=== PATIENT | female | born 1960 | race Caucasian/White ===

== ENCOUNTER → 2016-06-12 | Outpatient (CLI) | payer BC ==
[2016-06-12 08:46] LABS: Basophils # (A) 0.1 k/uL (0-0.2); Basophils % (A) 1 %; CH 29.9; CHCM 33.1; Eosinophils # (A) 0.2 k/uL (0-0.7); Eosinophils % (A) 3 %; HCT 44.2 % (34.0-46.0); HDW 2.33; Luc # (Auto) 0.08; Luc % (Auto) 2; Lymphocytes # (A) 1.8 k/uL (1.0-4.8); Lymphocytes % (A) 38 %; MCH 30.8 pg (25.0-35.0); MCHC 33.8 g/dL (31.0-37.0); Mean Platelet Volume 7.6; Monocytes # (A) 0.2 k/uL (0-1.0); Monocytes % (A) 5 %; Neutrophils # (A) 2.5 k/uL (1.3-7.7); Neutrophils % (A) 52 %; RBC 4.86 m/uL (3.80-5.40); RDW 12.5 % (11.5-15.5); WBC 4.8 k/uL (3.8-10.6); WBC (Perox) 4.69
[2016-06-12 09:11] LABS: ALT 25 U/L (9-52); AST 21 U/L (14-36); Alkaline Phosphatase 88 U/L (38-126); Anion Gap 10 mmol/L; Blood Urea Nitrogen 17 mg/dL (7-17); Calcium 9.8 mg/dL (8.4-10.2); Carbon Dioxide 27 mmol/L (22-30); Chloride 107 mmol/L (98-107); Cholesterol 238 mg/dL (<200); Glucose 94 mg/dL (74-99); HDL Cholesterol 62 mg/dL (40-60); Non-African American GFR(MDRD) >60 (>60 ml/min/1.73 sqM); Potassium 4.7 mmol/L (3.5-5.1); Sodium 144 mmol/L (137-145); Total Bilirubin 0.6 mg/dL (0.2-1.3); Total Protein 7.6 g/dL (6.3-8.2); Triglycerides 167 mg/dL (<150)
[2016-06-12 10:05] LABS: Hepatitis C Virus IgG Ab Negative (Negative)
== END ==
LOC: LABWHC1 08:27
PROVIDERS: ATTEND Family Medicine
DX: E78.5 Hyperlipidemia, unspecified (principal); Z20.9 Contact with and (suspected) exposure to unspecified communicable disease
CPT/HCPCS: 36415; 80053; 80061; 84439; 84443; 85025; 86803

== ENCOUNTER → 2017-05-09 | Outpatient (CLI) | payer BC ==
[2017-05-09 10:00] LABS: Cholesterol 230 mg/dL (<200); HDL Cholesterol 63 mg/dL (40-60); LDL Cholesterol,Calculated 152 mg/dL (0-99); Triglycerides 75 mg/dL (<150)
== END | disposition home or self-care (01) ==
LOC: LABWHC1 08:09
PROVIDERS: ATTEND Physician Assistant
DX: E78.5 Hyperlipidemia, unspecified (principal)
CPT/HCPCS: 36415; 80061

== ENCOUNTER → 2020-10-07 | Outpatient (CLI) | payer BC ==
--- NOTE | 2020-10-07 09:34 | XR ---
EXAMINATION TYPE: XR knee complete LT DATE OF EXAM: 10/07/2020 COMPARISON: NONE HISTORY: knee pain. TECHNIQUE: Three views are submitted. FINDINGS: Area of the medial compartment of the knee joint with hypertrophic spur. Patellofemoral joint hypertr ophic change and mild narrowing.. Osseous structures are intact. No acute fracture seen. IMPRESSION: 1. Mild osteoarthritic changes.
== END | disposition home or self-care (01) ==
LOC: RADXRMAIN 08:19
PROVIDERS: ATTEND Family Medicine
DX: M17.12 Unilateral primary osteoarthritis, left knee (principal)

== ENCOUNTER 2022-02-14 07:30 | Day surgery (SDC) | payer BC ==
[2022-02-12 13:42] VITALS: BMI 31.8
[~2022-02-14 07:30] MED LIST: LACTATED RINGERS 1,000 ML IV SCH; LIDOCAINE 1% (10MG/ML) FOR IV START INTRADERMA PRN
[2022-02-14 08:06] VITALS: RESP 16; TEMP 97.6
[2022-02-14] MEDS ORDERED: LIDOCAINE 2% INJ 20 MG/ML (2 ML VIAL) ONE (09:00)
[2022-02-14] MEDS ORDERED: PROPOFOL 10 MG/ML 20 ML VIAL IV ONE (09:00)
--- NOTE | 2022-02-14 09:31 | P.PCN ---
Date of Procedure: 02/14/22 Procedure(s) Performed: Brief history: Patient is a pleasant 61-year-old white female scheduled for an elective upper endoscopy as well as colonoscopy as a part of evaluation of GERD and screening for colon cancer Procedure performed: Esophagogastroduodenoscopy with biopsy Colonoscopy Preoperative diagnosis: GERD/screening for colon cancer Anesthesia: MAC Procedure: After informed consent was obtained from the patient was brought into the endoscopy unit and IV sedation was administered by anesthesia under continuous monitoring. Initially upper endoscopy was done. The Olympus GF 160 video endoscope was inserted inserted into the mouth and esophagus intubated without any difficulty and was gradually advanced into the stomach and duodenum and carefully examined. The bulb and second part of the duodenum appeared normal. The scope was then withdrawn into the stomach adequately insufflated with air and upon careful examination the antrum and mild gastritis and biopsies were done from this area. The body, cardia and fundus appeared normal. The scope was then withdrawn into the esophagus. The GE junction was located at 44 cm to the incisors. small to moderate size hiatal hernia noted. It appeared regular with no erythema erosions or ulcerations. Rest of the esophagus appeared n ormal. Patient tolerated the procedure well. At this time the patient continued to remain sedation. Initial digital rectal examination was normal. Olympus CF 160 video colonoscope was then inserted into the rectum and gradually advanced to the cecum without any difficulty. Careful examination was performed as the scope was gradually being withdrawn. The prep was excellent. The cecum, ascending colon, transverse colon, descending colon, sigmoid colon and rectum appeared normal. Retroflexion was performed in the rectum and no lesions were noted. Patient tolerated the procedure well. Impression: 1. Upper Endoscopy revealed small hiatal hernia and mild antral gastritis 2. Colonoscopy was within normal limits with no evidence of colorectal neoplasia Recommendations: Findings of this examination were discussed with the patient as well as her family. She was advised to follow with the biopsy results. She was advised to have a repeat screening colonoscopy in 10 years.
[2022-02-14 09:56] VITALS: BP 126/75; PULSE 66
== END 2022-02-14 10:09 | disposition home or self-care (01) ==
LOC: ORWHC2ENDO 07:30
PROVIDERS: ATTEND Internal Medicine Gastroenterology
DX: Z12.11 Encounter for screening for malignant neoplasm of colon (principal); K29.50 Unspecified chronic gastritis without bleeding; K31.A0 Gastric intestinal metaplasia, unspecified; K44.9 Diaphragmatic hernia without obstruction or gangrene; K21.9 Gastro-esophageal reflux disease without esophagitis
CPT/HCPCS: 45378; 88305; 43239; J2704; J2001; G0121

== ENCOUNTER → 2022-03-21 | Outpatient (CLI) | payer BC ==
--- NOTE | 2022-03-21 16:29 | CTL ---
EXAMINATION TYPE: CT Low Dose Lung DATE OF EXAM ORDERED: 03/21/2022 HISTORY: Long-term tobacco use. Lung cancer screening CT DLP: [address] CTDI: 2.3 mGy Automated exposure control for dose reduction was used. SCREENING VISIT: Baseline COMPARISON: None TECHNIQUE: Low dose computed tomography scan was performed through the chest at 1 mm thick sections a nd reconstructed images in multiple planes at 1 mm and [address] DIAGNOSTIC QUALITY: Satisfactory FINDINGS: LUNG NODULES: None. LUNGS: COPD: Severity: None Fibrosis: Severity: Mild bilateral lower lung linear scarring Lymph nodes: No greater than 1 cm noncalcified Other findings: None RIGHT PLEURAL SPACE: Effusion: None Calcification: None Thickening: None Pneumothorax: None LEFT PLEURAL SPACE: Effusion: None Calcification: None Thickening: None Pneumothorax: None HEART: Heart Size: Normal Coronary Calcification: None Pericardial Effusion: None OTHER FINDINGS: Upper abdomen: None Bony thorax: Slight scoliotic curvature. Mild multilevel anterior spurring. Supraclavicular region: None Other: None IMPRESSION: No significant pulmonary nodules. CT LUNG RAD AND CT CHEST RECOMMENDATION: Lung-Rad 1 Negative: Continue annual screening with LDCT in 12 months. S Modifier (other clinically significant findings): None
--- NOTE | 2022-03-21 18:07 | BD ---
EXAMINATION TYPE: Axial Bone Density DATE OF EXAM: 03/21/2022 COMPARISON: BASELINE CLINICAL HISTORY: 61 years old Female. ICD-10 CODE: Z78.0 ASYMPTOMATIC MENOPAUSE Height: 62.5 Weight: 184 FRAX RISK QUESTIONS: Family History (Parent hip fracture): NO History of Fracture in Adulthood: YES RT FOOT 2017 Secondary Osteoporosis: NO Rheumatoid Arthritis: NO Current Tobacco Use: YES RISK FACTORS HISTORY OF: Family History of Osteoporosis: YES MOTHER Active: YES Diet low in dairy products/other sources of calcium: NO Postmenopausal woman: YES Lost more than 2 inches in height since high school: NO Frequent falls: NO Poor Health: NO MEDICATIONS: Additional Medications: YES NORCO , CELEBREX , VIT D , CALCIUM EXAM MEASUREMENTS: Bone mineral densitometry was performed using the [employer] System. Bone mineral density as measured about the Lumbar spine is: ----- L1-L4(G/cm2): 0.931 T Score Values are as follows: ----- L1: -1.9 ----- L2: -2.0 ----- L3: -2.4 ----- L4: -2.1 ----- L1-L4: -2.1 Bone mineral density BASELINE Bone mineral density about the R hip (g/cm2): 0.886 Bone mineral density about the L hip (g/cm2): 0.873 T Score values are as follows: -----R Neck: -1.7 -----L Neck: -1.8 -----R Total: -1.0 -----L Total: -1.1 Bone mineral density has BASELINE FRAX%s: The graph provided illustrates a 15.2% chance for a major osteoporotic fx and a 2.9% chance f or the hips probability for fx in 10 years time. IMPRESSION: Osteopenia (T Score between -2.5 and -1). There is slightly increased risk of fracture and the patient may be considered for treatment. Re-Screen 2-5 years. NOTE: T-SCORE=SD OF THE YOUNG ADULT MEAN.
== END | disposition home or self-care (01) ==
LOC: RADCTMAIN 15:07
PROVIDERS: ATTEND Family Medicine
DX: Z12.2 Encounter for screening for malignant neoplasm of respiratory organs (principal); M85.89 Other specified disorders of bone density and structure, multiple sites; Z87.891 Personal history of nicotine dependence; Z78.0 Asymptomatic menopausal state; Z79.1 Long term (current) use of non-steroidal anti-inflammatories (NSAID)
CPT/HCPCS: 71271; 77080

== ENCOUNTER → 2022-07-11 | Outpatient (CLI) | payer BC ==
--- NOTE | 2022-07-11 11:05 | CA ---
Stress Echo Report Pura Pulido Age: 62 Gender: F : 1960 Exam Date: 07/11/2022 09:51 Exam Location: [place] [facility] Ht (in): 63 Wt (lb): 177 Ordering Physician: Ranjit Villalobos MD Referring Physician: Wilfredo PENALOZA Stove Installer: REUBEN Technologist Procedure CPT: Indication: Z87.891 PERSONAL HISTORY OF NICOTINE DEPENDENCE ICD-9 Codes: Rhythm: Patient History: Abnormal EKG Cardiac Medications: Medications in past 24 hours: Contrast: Stress Results Protocol: Raul Total dose(mL): Exercise Duration (min:sec): 10:[address] Depression (mm): Angina Score: Lazo Score: METS: 11.5 Resting HR: 60 Resting BP: 96 / 71 Peak HR: 142 Peak BP: 176 / 67 Max Predicted HR: 159 89 % Max Predicted HR Target HR: 135 Double Product: [id number] Stress Summary: BP Response: Reason for Termination: Reached target heart rate or work-load Cardiac Symptoms: No Symptoms ECG Analysis Resting ECG: Stress ECG: Arrhythmia: Echo Analysis Resting Echo: Peak Echo Analysis: MEASUREMENTS (Male/Female) Normal Values CONCLUSIONS Baseline EKG revealed normal sinus rhythm with nondiagnostic inferior Q waves. Patient walked for 10 minutes 17 seconds and achieved a maximum heart rate of 142 bpm is more than 85% of predicted maximal. She did not have any anginal symptoms. EKG did not reveal any ST segment changes to indicate ischemia. In the recovery. Isolated PVCs were noted. This is a negative stress test with good exercise capacity by EKG criteria Baseline echo images reveal normal wall motion wall thickening. At peak exercise there was good augmentation of left ventricular wall motion wall thickening. The inferobasal segment however he is not well seen. Overall no clearcut evidence to suggest ischemia on this somewhat suboptimal stress echocardiogram. Final impression: #1 normal stress test by EKG criteria with good exercise capacity. #2 probably normal stress echocardiogram with somewhat suboptimal inferobasal segment visualization. Dr. Torrey Bashir MD (Electronically Signed) Final Date: 11 July 2022 11:04
--- NOTE | 2022-07-12 11:39 | CA ---
Transthoracic Echo Report Name: Pura Pulido Age: 62 Gender: F : 1960 Exam Date: 07/11/2022 10:31 Exam Location: [place] [facility] Ht (in): 63 Wt (lb): 177 Ordering Physician: Ranjit Villalobos MD Attending/Referring Phys: Wilfredo PENALOZA Motion Picture Director Neil Sage [facility] Procedure CPT: Indications: Z87.891 PERSONAL HISTORY OF NICOTINE DEPENDENCE Cardiac Hx: Technical Quality: Fair Contrast 1: Total Dose (mL): Contrast 2: Total Dose (mL): MEASUREMENTS (Male / Female) Normal Values 2D ECHO LV Diastolic Diameter PLAX 3.9 cm 4.2 - 5.9 / 3.9 - 5.3 cm LV Systolic Diameter PLAX 3.0 cm LV Fractional Shortening PLAX 23.6 % IVS Diastolic Thickness 1.2 cm 0.6 - 1.0 / 0.6 - 0.9 cm IVS Systolic Thickness 1.3 cm LVPW Diastolic Thickness 1.0 cm 0.6 - 1.0 / 0.6 - 0.9 cm LVPW Systolic Thickness 1.2 cm LV Relative Wall Thickness 0.6 RV Internal Dim ED PLAX 2.8 cm LVOT Diameter 2.0 cm LA Systolic Diameter LX 2.7 cm 3.0 - 4.0 / 2.7 - 3.8 cm LV Diastolic Volume MOD BP 77.5 cm??? 67 - 155 / 56 - 104 cm??? LV Systolic Volume MOD BP 33.9 cm??? 22 - 58 / 19 - 49 cm??? LV Ejection Fraction MOD BP 56.2 % >= 55 % LV Stroke Volume MOD BP 43.6 cm??? LV Diastolic Volume MOD 4C 74.9 cm??? LV Systolic Volume MOD 4C 28.4 cm??? LV Ejection Fraction MOD 4C 62.0 % LV Stroke Volume MOD 4C 46.5 cm??? LV Diastolic Length 4C 7.7 cm LV Systolic Length 4C 7.4 cm LV Diastolic Volume MOD 2C 71.9 cm??? LV Systolic Volume MOD 2C 38.2 cm??? LV Ejection Fraction MOD 2C 46.8 % LV Stroke Volume MOD 2C 33.6 cm??? LV Diastolic Length 2C 8.7 cm LV Systolic Length 2C 6.8 cm LA Area 4C View 11.7 cm??? <= 20 cm??? LA Volume 31.0 cm??? 18 - 58 / 22 - 52 cm??? M-MODE Aortic Root Diameter MM 2.3 cm LA Systolic Diameter MM 3.2 cm LA Ao Ratio MM 1.4 DOPPLER AV Peak Velocity 95.7 cm/s AV Peak Gradient 3.7 mmHg MV Deceleration Freestone 294.5 cm/s??? MV Pressure Half Time 60.4 ms MV Area PHT 3.6 cm??? Mitral E Point Velocity 61.3 cm/s Mitral A Point Velocity 77.1 cm/s Mitral E to A Ratio 0.8 MV Deceleration Time 208.2 ms MV E' Velocity 5.3 cm/s Mitral E to MV E' Ratio 11.5 TR Peak Velocity 166.9 cm/s TR Peak Gradient 11.1 mmHg Right Ventricular Systolic Press 16.1 mmHg PV Peak Velocity 75.2 cm/s PV Peak Gradient 2.3 mmHg FINDINGS Left Ventricle Left ventricular ejection fraction is estimated at 55-60 %. Borderline left ventricular hypertrophy. Grade 1 diastolic dysfunction. Normal systolic function. IVS is bulged on basal level. Right Ventricle Normal right ventricular size and function. Right Atrium Normal right atrial size. Left Atrium Normal left atrial size. 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 Mitral Valve Mild thickening/calcification of the anterior mitral valve leaflet. Mild thickening/calcification of the posterior mitral valve leaflet. Trace mitral regurgitation. Aortic Valve Trileaflet aortic valve. Diffuse thickening (sclerosis) of the aortic valve cusps without reduced excursion. Tricuspid Valve Trace to mild tricuspid regurgitation. Pulmonic Valve Pulmonic valve not well visualized. Pericardium Normal pericardium. No pericardial effusion. Aorta Normal size aortic root and proximal ascending aorta. CONCLUSIONS Normal LV size and systolic function. Nonspecific thickening of mitral valve leaflets. I aortic valve sclerosis. No pericardial effusion. Mild mitral and tricuspid regurgitation Previewed by: Dr. Torrey Bashir MD (Electronically Signed) Final Date: 12 July 2022 11:38
== END | disposition home or self-care (01) ==
LOC: RADNMMAIN 09:16
PROVIDERS: ATTEND Family Medicine
DX: R94.31 Abnormal electrocardiogram [ECG] [EKG] (principal); Z87.891 Personal history of nicotine dependence; Z78.0 Asymptomatic menopausal state
CPT/HCPCS: 93306; 93351

== ENCOUNTER → 2022-08-27 | Outpatient (CLI) | payer BC ==
--- NOTE | 2022-08-27 14:55 | CT ---
EXAMINATION TYPE: CT brain inocencio napier DATE OF EXAM: 08/27/2022 COMPARISON: None HISTORY: Headache and neck pain Unenhanced CT of the brain was performed. The ventricles, basal cisterns and sulci overlying the cerebral convexities demonstrate mild enlargem ent. There is no evidence for intracranial hemorrhage or sulcal effacement. There is decreased attenuatio n about the periventricular white matter and deep white matter of both cerebral hemispheres, compatib le with chronic small vessel ischemia. No mass effects are seen. If symptoms persist consider MRI. Osseous calvarium is intact. IMPRESSION: 1. Age related atrophic and chronic small vessel ischemic change without acute intracranial process seen at this time. CT Cervical Spine: Unenhanced CT of the cervical spine was performed with bone and soft tissue window settings submitted . Coronal and sagittal reconstruction is obtained. There is normal alignment and prevertebral soft tissues. No evidence for acute cervical fracture . Mi [id number] degenerative disc space narrowing at C4-5, C5-6 and C6-7. Posterior disc bulge without hilary disc herniation. Left foraminal encroachment mild in degree at C4-5 and C5-6. Biapical scarrin g. IMPRESSION: 1. No evidence for acute fracture or subluxation of the cervical spine.
== END | disposition home or self-care (01) ==
LOC: RADCTMAIN 14:16
PROVIDERS: ATTEND Family Medicine
DX: G44.309 Post-traumatic headache, unspecified, not intractable (principal)
CPT/HCPCS: 70450; 72125

== ENCOUNTER → 2022-11-13 | Outpatient (CLI) | payer BC | LOC: CPPFTMAIN 10:59 | PROVIDERS: ATTEND Family Medicine | DX: J44.9 Chronic obstructive pulmonary disease, unspecified (principal); F17.200 Nicotine dependence, unspecified, uncomplicated | CPT/HCPCS: 94060; 94726; 94729 ==

== ENCOUNTER → 2024-03-03 | Outpatient (CLI) | payer BC ==
[2024-03-03 09:37] LABS: Basophils % (A) 1 %; Eosinophils # (A) 0.2 k/uL (0-0.7); Eosinophils % (A) 3 %; HCT 47.1 % (34.0-46.0); HGB 15.1 gm/dL (11.4-16.0); Lymphocytes % (A) 36 %; MCH 29.4 pg (25.0-35.0); MCHC 32.1 g/dL (31.0-37.0); MCV 91.5 fL (80.0-100.0); Mean Platelet Volume 8.6; Monocytes # (A) 0.3 k/uL (0-1.0); Monocytes % (A) 5 %; Neutrophils # (A) 3.1 k/uL (1.3-7.7); Neutrophils % (A) 55 %; Platelet Count 346 k/uL (150-450); RBC 5.15 m/uL (3.80-5.40); RDW 12.9 % (11.5-15.5); WBC 5.7 k/uL (3.8-10.6)
[2024-03-03 09:55] LABS: ALT 14 U/L (4-34); AST 23 U/L (14-36); African American GFR (CKD) >90 (>60 ml/min/1.73 sqM); Albumin 4.5 g/dL (3.5-5.0); Albumin/Globulin Ratio 1.4; Alkaline Phosphatase 118 U/L (38-126); Anion Gap 5 mmol/L; Blood Urea Nitrogen 20 mg/dL (7-17); Carbon Dioxide 29 mmol/L (22-30); Chloride 105 mmol/L (98-107); Globulin 3.2 g/dL; Glucose 96 mg/dL (74-99); Non-African American GFR(CKD) >90 (>60 ml/min/1.73 sqM); Potassium 5.1 mmol/L (3.5-5.1); Sodium 139 mmol/L (137-145); Total Bilirubin 0.4 mg/dL (0.2-1.3); Total Protein 7.7 g/dL (6.3-8.2)
[2024-03-03 15:41] LABS: Chol/HDL Ratio 4.99 Ratio; LDL Cholesterol,Calculated 175.9 mg/dL (0.0-131.0)
== END | disposition home or self-care (01) ==
LOC: LABWHC1 08:39
PROVIDERS: ATTEND Family Medicine
DX: Z77.128 Contact with and (suspected) exposure to other hazards in the physical environment (principal); E78.5 Hyperlipidemia, unspecified; R73.03 Prediabetes
CPT/HCPCS: 36415; 80053; 80061; 82375; 83036; 84443; 85025